=== PATIENT | female | born 1995 | race Caucasian/White ===

== ENCOUNTER 2018-10-20 22:54 | Emergency (ER) | payer OTHER ==
[2018-10-21 00:30] LABS: Absolute Lymphocytes (CBC) 1.8 K/uL (0.7-4.9); Absolute Monocytes 0.6 K/uL (0.1-1.3); Absolute Neutrophil 5.9 K/uL (1.8-8.0); Basophils % 0.9 % (0-1.3); Eosinophils % 1.1 % (0-4.4); Hematocrit 35.4 % (36.0-45.0); Lymphocytes % 21.5 % (15.3-44.8); MPV 9.5 fL (7.6-11.3); Monocytes % 7.1 % (3.3-12.3); RBC Red Blood Cell Count 4.16 M/uL (3.86-4.86)
[2018-10-21 00:33] LABS: Urine Blood NEGATIVE (NEG); Urine Glucose NEGATIVE (NEG); Urine Protein NEGATIVE (NEG)
[2018-10-21 01:13] LABS: BUN Blood Urea Nitrogen 7 mg/dL (7-18); Bicarbonate 28 mmol/L (21-32); Glucose Level 83 mg/dL (74-106); HCG, Quantitative 97662 mIU/mL (1-3); Potassium 3.6 mmol/L (3.5-5.1); Sodium Level 140 mmol/L (136-145)
[2018-10-21 02:34] LABS: Urine Bacteria <20 /HPF (<20); Urine Culture Reflex Order NOT NEEDED; Urine Mucus LIGHT /HPF (NONE SEEN); Urine RBC NONE SEEN /HPF (NONE SEEN)
--- NOTE | 2018-10-21 02:42 | ER ---
Nurse's Notes [facility] Name: Elle Hunter Age: 23 yrs Sex: Female : 1995 Arrival Date: 10/20/2018 Time: 22:56 Bed 15 Private MD: Diagnosis: Threatened Presentation: 10/20 23:14 Presenting complaint: Patient states: she is 8 weeks started spotting a couple bb of days ago but today is having mild abdominal cramping and was told to come to ED if symptoms changed. Transition of care: patient was not received from another setting of care. Onset of symptoms was October 18, 2018. Risk Assessment: Do you want to hurt yourself or someone else? Patient reports no desire to harm self or others. Initial Sepsis Screen: Does the patient meet any 2 criteria? No. Patient's initial sepsis screen is negative. Does the patient have a suspected source of infection? No. Patient's initial sepsis screen is negative. Care prior to arrival: None. 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 - Social history:: Smoking status: Patient uses tobacco products, denies chronic smoking, but will smoke occasionally. - Ebola Screening: : No symptoms or risks identified at this time. Screenin/15 01:00 Abuse screen: Denies threats or abuse. Denies injuries from another. Nutritional rr5 screening: No deficits noted. Tuberculosis screening: No symptoms or risk factors identified. Fall Risk IV access (20 points). Total Rodriguez Fall Scale indicates No Risk (0-24 pts). Assessment: 00:05 General: Appears in no apparent distress. uncomfortable, Behavior is calm, cooperative, rr5 appropriate for age. Pain: Complains of pain in head and pelvis Pain does not radiate. Pain currently is 4 out of 10 on a pain scale. Quality of pain is described as aching, Pain began gradually, Is intermittent. Neuro: Level of Consciousness is awake, alert, obeys commands, Oriented to person, place, time, situation, Appropriate for age. Cardiovascular: Capillary refill < 3 seconds Patient's skin is warm and dry. Respiratory: Airway is patent Respiratory effort is even, unlabored, Respiratory pattern is regular, symmetrical. GI: No signs and/or symptoms were reported involving the gastrointestinal system. : Reports cramping, vaginal bleeding that is spotty. EENT: No signs and/or symptoms were reported regarding the EENT system. Derm: Skin temperature is warm. 00:05 Musculoskeletal: Capillary refill < 3 seconds, Range of motion: intact in all rr5 extremities. 00:05 Obstetrical Assessment: General assessment: awake and alert, Rupture of membranes rr5 noted. Patient reports abdominal cramping, on and off. 01:20 Reassessment: Patient appears in no apparent distress at this time. Patient is alert, rr5 oriented x 3, equal unlabored respirations, skin warm/dry/pink. awaiting for result. Reassessment: Patient appears in no apparent distress at this time. 02:30 Reassessment: Patient appears in no apparent distress at this time. Patient is alert, rr5 oriented x 3, equal unlabored respirations, skin warm/dry/pink. no complaints made. 03:00 Reassessment: Patient appears in no apparent distress at this time. Patient is alert, rr5 oriented x 3, equal unlabored respirations, skin warm/dry/pink. discharge instruction given and explained without complaints made. Vital Signs: 10/20 23:17 BP 116 / 69; Pulse 81; Resp 16 S; Temp 98.3(O); Pulse Ox 100% on R/A; Weight 95.25 kg bb (R); Height 5 ft. 7 in. (170.18 cm) (R); Pain 11/13; 10/21 00:00 BP 101 / 64; Pulse 76; Resp 16; Pulse Ox 99% ; rr5 01:00 BP 97 / 65; Pulse 66; Resp 17; Pulse Ox 98% ; rr5 02:00 BP 91 / 54; Pulse 70; Resp 18; Pulse Ox 99% ; rr5 02:55 BP 101 / 60; Pulse 65; Resp 16; Pulse Ox 99% ; rr5 10/20 23:17 Body Mass Index 32.89 (95.25 kg, 170.18 cm) ED Course: 10/20 22:56 Patient arrived in ED. es 23:01 Zeb Marmolejo NP is PHCP. pm1 23:01 Ulises Steen MD is Attending Physician. pm1 23:16 Triage completed. bb 23:17 Arm band placed on Patient placed in waiting room, Patient notified of wait time. bb 23:34 US Transvaginal Ob In Process Unspecified. EDMS 10/21 00:00 Pulse ox on. NIBP on. rr5 00:04 Dexter Jhaveri, RN is Primary Nurse. rr5 00:05 Patient has correct armband on for positive identification. Bed in low position. Call rr5 light in reach. Side rails up X 1. 00:10 Inserted saline lock: 20 gauge in right antecubital area, using aseptic technique. rr5 Blood collected. 03:15 No provider procedures requiring assistance completed. IV discontinued, intact, rr5 bleeding controlled, No redness/swelling at site. Pressure dressing applied. Administered Medications: No medications were administered Point of Care Testing: Urine : 00:03 hCG Reading: Positive; Control Reading: Positive; rr5 Outcome: 02:41 Discharge ordered by . pm1 03:00 Discharged to home ambulatory. rr5 03:00 Condition: stable 03:00 Discharge instructions given to patient, Instructed on discharge instructions, follow up and referral plans. Demonstrated understanding of instructions, follow-up care. 03:18 Patient left the ED. rr5 Signatures: Dispatcher [employer] Ania Head Brenda, RN RN bb Zeb Marmolejo, [employer] SENIOR COMPUTER SPECIALIST pm1 Dexter Jhaveri, RN RN rr5
--- NOTE | 2018-10-21 02:42 | EDPHYS ---
Physician Documentation [facility] Name: Elle Hunter Age: 23 yrs Sex: Female : 1995 Arrival Date: 10/20/2018 Time: 22:56 Bed 15 Private MD: ED Physician Ulises Steen HPI: 10/21 00:43 This 23 yrs old Female presents to ER via Ambulatory with complaints of pm1 Vaginal Bleeding, + Preg <12wks. 00:43 The patient presents to the emergency department with vaginal bleeding, described as pm1 spotting, with no clots. The estimated gestational age is 8 weeks. course: care: none, Leakage of Fluid: none appreciated, Ultrasound: the patient has not had an ultrasound, Risk/complications: no obvious risks or complications are appreciated. Previous pregnancies: in previous pregnancies patient has had no complications. Associated signs and symptoms: Pertinent negatives: chest pain, dysuria, fever, nausea, shortness of breath, vomiting. The patient has not experienced similar symptoms in the past. The patient has not recently seen a physician. Spotting 2 days ago that resolved. No bleeding today but has had some suprapubic cramping. 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 - Social history:: Smoking status: Patient uses tobacco products, denies chronic smoking, but will smoke occasionally. - Ebola Screening: : No symptoms or risks identified at this time. ROS: 10/21 00:43 Constitutional: Negative for fever, chills, and weight loss, Eyes: Negative for injury, pm1 pain, redness, and discharge, ENT: Negative for injury, pain, and discharge, Neck: Negative for injury, pain, and swelling, Cardiovascular: Negative for chest pain, palpitations, and edema, Respiratory: Negative for shortness of breath, cough, wheezing, and pleuritic chest pain, Abdomen/GI: Negative for abdominal pain, nausea, vomiting, diarrhea, and constipation, Back: Negative for injury and pain. MS/Extremity: Negative for injury and deformity, Skin: Negative for injury, rash, and discoloration, Neuro: Negative for headache, weakness, numbness, tingling, and seizure. : Positive for vaginal bleeding, Negative for burning with urination, difficulty urinating. Exam: 00:43 Constitutional: This is a well developed, well nourished patient who is awake, alert, pm1 and in no acute distress. Head/Face: Normocephalic, atraumatic. Eyes: Pupils equal round and reactive to light, extra-ocular motions intact. Lids and lashes normal. Conjunctiva and sclera are non-icteric and not injected. Cornea within normal limits. Periorbital areas with no swelling, redness, or edema. ENT: Nares patent. No nasal discharge, no septal abnormalities noted. Tympanic membranes are normal and external auditory canals are clear. Oropharynx with no redness, swelling, or masses, exudates, or evidence of obstruction, uvula midline. Mucous membranes moist. Neck: Trachea midline, no thyromegaly or masses palpated, and no cervical lymphadenopathy. Supple, full range of motion without nuchal rigidity, or vertebral point tenderness. No Meningismus. Chest/axilla: Normal chest wall appearance and motion. Nontender with no deformity. No lesions are appreciated. Cardiovascular: Regular rate and rhythm with a normal S1 and S2. No gallops, murmurs, or rubs. Normal PMI, no JVD. No pulse deficits. Respiratory: Lungs have equal breath sounds bilaterally, clear to auscultation and percussion. No rales, rhonchi or wheezes noted. No increased work of breathing, no retractions or nasal flaring. Abdomen/GI: Soft, non-tender, with normal bowel sounds. No distension or tympany. No guarding or rebound. No evidence of tenderness throughout. Back: No spinal tenderness. No costovertebral tenderness. Full range of motion. Skin: Warm, dry with normal turgor. Normal color with no rashes, no lesions, and no evidence of cellulitis. MS/ Extremity: Pulses equal, no cyanosis. Neurovascular intact. Full, normal range of motion. 00:43 Neuro: Orientation: is normal, Motor: is normal, moves all fours. Vital Signs: 10/20 23:17 BP 116 / 69; Pulse 81; Resp 16 S; Temp 98.3(O); Pulse Ox 100% on R/A; Weight 95.25 kg bb (R); Height 5 ft. 7 in. (170.18 cm) (R); Pain 3/10; 10/21 00:00 BP 101 / 64; Pulse 76; Resp 16; Pulse Ox 99% ; rr5 01:00 BP 97 / 65; Pulse 66; Resp 17; Pulse Ox 98% ; rr5 02:00 BP 91 / 54; Pulse 70; Resp 18; Pulse Ox 99% ; rr5 02:55 BP 101 / 60; Pulse 65; Resp 16; Pulse Ox 99% ; rr5 10/20 23:17 Body Mass Index 32.89 (95.25 kg, 170.18 cm) bb MDM: 00:04 Patient medically screened. pm1 00:46 Data reviewed: vital signs. Data interpreted: Pulse oximetry: on room air is 100 %. pm1 Interpretation: normal. Counseling: I had a detailed discussion with the patient and/or guardian regarding: radiology results. 02:41 Counseling: I had a detailed discussion with the patient and/or guardian regarding: the pm1 historical points, exam findings, and any diagnostic results supporting the discharge/admit diagnosis, lab results, the need for outpatient follow up, to return to the emergency department if symptoms worsen or persist or if there are any questions or concerns that arise at home. 10/20 23:01 Order name: Quantitative Hcg; Complete Time: 01:18 pm1 10/20 23:01 Order name: Abo/rh Typing; Complete Time: 01:01 pm10/20 23:01 Order name: Basic Metabolic Panel; Complete Time: 01:18 pm10/20 23:01 Order name: CBC with Diff; Complete Time: 00:48 pm1 10/21 00:03 Order name: Urine Dipstick--Ancillary (enter results); Complete Time: 00:48 ag4 10/21 00:03 Order name: Urine --Ancillary (enter results); Complete Time: 00:48 ag4 10/20 23:01 Order name: Urine Test (obtain specimen); Complete Time: 00:05 pm1 10/20 23:01 Order name: IV Saline Lock; Complete Time: 00:18 pm10/20 23:01 Order name: Labs collected and sent; Complete Time: 00:19 pm1 10/20 23:01 Order name: NPO; Complete Time: 00:05 pm10/20 23:01 Order name: Urine Dipstick-Ancillary (obtain specimen); Complete Time: 00:05 pm10/20 23:02 Order name: US Transvaginal Ob pm1 10/21 00:49 Order name: Urine Microscopic Only; Complete Time: 02:41 pm1 Administered Medications: No medications were administered Point of Care Testing: Urine : 00:03 hCG Reading: Positive; Control Reading: Positive; rr5 Disposition: 06:18 Co-signature as Attending Physician, Ulises Steen MD I agree with the assessment and tw4 plan of care. Disposition: 10/21/18 02:41 Discharged to Home. Impression: Threatened . - Condition is Stable. - Discharge Instructions: Threatened Miscarriage, Pelvic Rest. - Medication Reconciliation Form, Thank You Letter form. - Follow up: Emergency Department; When: As needed; Reason: Worsening of condition. Follow up: Private Physician; When: 2 - 3 days; Reason: Recheck today's complaints, Continuance of care, Re-evaluation by your physician. - Problem is new. - Symptoms have improved. Signatures: Dispatcher [employer] EDKarlene Armstrong RN RN bb Marinas, Patrick, SURFACE PLATE INSPECTOR SURFACE PLATE INSPECTOR pm1 Ulises Steen MD MD tw4 Dexter Jhaveri RN RN rr5 Corrections: (The following items were deleted from the chart) 03:18 02:41 10/21/2018 02:41 Discharged to Home. Impression: Threatened . Condition rr5 is Stable. Discharge Instructions: Threatened Miscarriage, Pelvic Rest. Forms are Medication Reconciliation Form, Thank You Letter, Antibiotic Education, Prescription Opioid Use. Follow up: Emergency Department; When: As needed; Reason: Worsening of condition. Follow up: Private Physician; When: 2 - 3 days; Reason: Recheck today's complaints, Continuance of care, Re-evaluation by your physician. Problem is new. Symptoms have improved. pm1
[2018-10-21 05:02] VITALS: TEMP 98.3
[2018-10-21 05:06] VITALS: O2SAT 99
[2018-10-21 05:07] VITALS: BP 101/60
--- NOTE | 2018-10-21 10:12 | RAD REPORT ---
EXAM DESCRIPTION: US - Transvaginal OB - 10/20/2018 11:34 pm CLINICAL HISTORY: , vaginal bleeding COMPARISON: None. TECHNIQUE: Endovaginal sonography performed. FINDINGS: No cervical canal abnormality identified. A single intrauterine gestation is identifiable. [place]-rump length measurement corresponds to 7 week 2 day age. Heart rate is 141 BPM. Calculated SHANNAN is 06/06/2019. Gestational sac is normal in configuration. No hematoma or mass within the endometria l cavity. No myometrial mass. Uterus is normal in size and contour. Normal right ovary seen. No right adnexa mass. Left ovary was not visualized. No left adnexal mass. N o blood or fluid in the cul de sac. IMPRESSION: Single 7 week 2 day IUP. Heart rate is 141 BPM. Cervical canal is closed. No hematoma, mass or suspicious finding noted.
== END 2018-10-21 03:18 | disposition home or self-care (01) ==
LOC: ER 22:54
DX: O20.0 Threatened abortion (principal); O99.331 Smoking (tobacco) complicating pregnancy, first trimester; Z88.1 Allergy status to other antibiotic agents; Z88.2 Allergy status to sulfonamides
CPT/HCPCS: 36415; 76817; 80048; 81003; 81015; 81025; 84702; 85025; 86900; 86901; 99284